=== PATIENT | male | born 1980 | race Caucasian/White ===

== ENCOUNTER 2017-01-02 04:51 | Emergency (ER) | payer OTHER ==
[~2017-01-02] VITALS: Ht 195.6 cm; Wt 90.7 kg
== END 2017-01-02 06:44 | disposition home or self-care (01) ==
LOC: CED 04:51
DX: T50.7X1A Poisoning by analeptics and opioid receptor antagonists, accidental (unintentional), initial encounter (principal)
CPT/HCPCS: 36415; 96361; 96374; 99285; J2405